=== PATIENT | female | born 1935 | race Caucasian/White ===

== ENCOUNTER → 2020-10-08 | Outpatient (CLI) | payer SELFPAY | LOC: M LABSMTC 10:05 | PROVIDERS: ATTEND Pediatrics | DX: Z20.828 Contact with and (suspected) exposure to other viral communicable diseases (principal) ==

== ENCOUNTER → 2021-07-15 | Outpatient (CLI) | payer MEDICARE, OTHER ==
--- NOTE | 2021-07-15 14:52 | REP ---
INDICATION: FALL OSTEOPOROSIS. COMPARISON: 08/14/2016. TECHNIQUE: Three AP and lateral views thoracic spine. FINDINGS: Mild compression deformity of the T5 vertebral body is stable. There is [id number] compression deformity of T6 and T7, increased since the prior exam. There is mild new compression deformity of T12. There is mild diffuse spurring. The vertebral bodies are well aligned. Posterior elements appear intact. IMPRESSION: [id number] compression deformities of T6 and T7, mild compression deformity of T12, have progressed since the prior exam. <Electronically signed by Jh Martin > 07/15/21 [id number]
== END ==
LOC: M RAD 11:26
PROVIDERS: ATTEND Internal Medicine
DX: N81.0 Urethrocele (principal)

== ENCOUNTER → 2022-09-12 | Outpatient (CLI) | payer MEDICARE, OTHER | LOC: M WHC 12:14 | PROVIDERS: ATTEND Orthopaedic Surgery | DX: S22.080A Wedge compression fracture of T11-T12 vertebra, initial encounter for closed fracture (principal); W18.30XA Fall on same level, unspecified, initial encounter; Y92.009 Unspecified place in unspecified non-institutional (private) residence as the place of occurrence of the external cause ==

== ENCOUNTER → 2022-10-16 | Outpatient (CLI) | payer MEDICARE, OTHER | LOC: M PLAIMG 10:37 | PROVIDERS: ATTEND Physician Assistant | DX: M54.59 Other low back pain (principal) ==

== ENCOUNTER → 2023-07-29 | Outpatient (REF) | payer MEDICARE, OTHER ==
[2023-07-29 15:50] LABS: FOLATE 17.1 NG/ML (>5.4)
== END ==
LOC: M LAB REF 12:36
PROVIDERS: ATTEND Internal Medicine
DX: R41.81 Age-related cognitive decline (principal)

== ENCOUNTER → 2024-01-12 | Outpatient (CLI) | payer MEDICARE, OTHER | LOC: M WUC 11:39 | PROVIDERS: ATTEND Nurse Practitioner Family | DX: M25.511 Pain in right shoulder (principal) ==